=== PATIENT | female | born 1965 | race Caucasian/White ===

== ENCOUNTER 2016-12-04 15:58 | Inpatient (IN) | payer BC ==
--- NOTE | ~2016-12-04 | HP ---
History And Physical [address] [place]. [address] NAME: WHITNEY BREWER : 65 STATUS : ADM IN [facility]#: [id number] AGE: 51 ADM/REG DATE : 12/04/16 MR#: [id number] REPORT SERV DATE: 12/05/16 DICTATED BY: JACQUE LONG DATE: 12/04/16 REPORT STATUS : Draft TRANSCRIBED BY: MODL DATE: 12/04/16 DATE OF ADMISSION: 12/04/2016 CHIEF COMPLAINT: Left renal mass. HISTORY OF PRESENT ILLNESS: Ms. Brewer is a 51-year-old female, who I saw in clinic today for a new complaint of the left renal mass. She was in her usual state of health until approximately last week when she developed severe onset of nausea, vomiting, left flank pain, and hematuria. A KUB done showed enlarged left renal silhouette. A CT scan without contrast demonstrated a greater than 10 cm left renal mass calcifications as well. There was no adenopathy or vena cava involvement on a noncontrast scan. Her white count at that time was 20,000 and her creatinine was 1.1. Hemoglobin was stable. Urinalysis was positive for infection and she was placed on Bactrim. In the clinic today, she looks lethargic and generally unwell. I thought it best to perform her further workup as an inpatient and potentially perform her needed procedures as an inpatient as well. PAST MEDICAL HISTORY: Notable for hypothyroidism. PAST SURGICAL HISTORY: None. MEDICATIONS: Synthroid. ALLERGIES: NONE. FAMILY HISTORY: No family history of genitourinary malignancy. SOCIAL HISTORY: She is accompanied by her family. She is with two children. She does not drink, use drugs, or smoke. She is a current smoker. REVIEW OF SYSTEMS: A 12-point review of systems was performed. Pertinent positives are listed in the HPI. PHYSICAL EXAMINATION: VITAL SIGNS: Temperature 98.3, pulse 88, blood pressure is 105/59, saturating 92% on room air. Her BMI is 21.4. GENERAL: She is in no acute distress. She appears her stated age. HEENT: Head is normocephalic and atraumatic. LUNGS: Breathing is nonlabored. She is not in respiratory distress. Pulse is regular in rate and rhythm. ABDOMEN: Soft, nontender, and nondistended. She does have left CVA tenderness. NEURO: She is alert and oriented x3. EXTREMITIES: There is no cyanosis or edema. LABORATORY DATA: Repeat labs on admission. White count 20.7, hemoglobin 11.6, creatinine 0.92. Urinalysis is inflammatory, but not concerning for infection. History And Physical [address] [place]. [address] NAME: WHITNEY BREWER : 65 STATUS : ADM IN PAT#: [id number] AGE: 51 ADM/REG DATE : 12/04/16 MR#: [id number] REPORT SERV DATE: 12/05/16 DICTATED BY: JACQUE LONG DATE: 12/04/16 REPORT STATUS : Draft TRANSCRIBED BY: SANG DATE: 12/04/16 IMAGING: CT scan of the chest, abdomen, and pelvis is pending. ASSESSMENT AND PLAN: Ms. Brewer is a 51-year-old female with what appears to be a localized large left renal mass. She is currently not doing all that well and is being admitted for hydration as well as further workup and monitoring. We will plan on getting a CT scan of the chest, abdomen, and pelvis this evening from further staging. I will put her on IV antibiotics and IV fluids for her infection. I will leave her n.p.o. for now. Based upon her CT scan results, we can determine the next best steps. It seems very likely that she will need a left nephrectomy. The approach and timing of that depends on CT scan. JUAN ALBERTO/SANG Jacque Long MD / [id number] CC: MD ALICIA Wilkerson SAMANTHA COLEEN
--- NOTE | ~2016-12-04 | DS ---
Discharge Summary [facility] [address] [place]. [address] NAME: WHITNEY STEWART : 65 STATUS : DIS IN PAT#: [id number] AGE: 51 ADM/REG DATE : 12/04/16 MR#: [id number] REPORT SERV DATE: 12/25/16 DICTATED BY: JCAQUE LONG DATE: 12/24/16 REPORT STATUS : Draft TRANSCRIBED BY: SANG DATE: 12/24/16 Data Collection from hospitalization DISCHARGE DIAGNOSES: 1. Large 15 cm left renal mass. 2. Hypothyroidism. 3. Tobacco use. 4. Gastroesophageal reflux disease. 5. Anemia. CONSULTATIONS: None. PROCEDURES: 1. Left robot-assisted laparoscopic radical nephrectomy, periaortic lymph node dissection, 12/10/2016. 2. CT scan of the chest with contrast and CT scan of the abdomen and pelvis with and without contrast, 12/05/2016. PATHOLOGY: Kidney, left, radical nephrectomy - renal cell carcinoma, unclassified (see microscopic). DISCHARGE MEDICATIONS: Zyrtec 10 mg daily, Benadryl 25 mg at bedtime, Colace 100 mg twice a day, Advil 600 mg twice a day as needed, Synthroid 100 mcg every morning, Percocet 5/325 one to two tablets every four hours as needed. CONDITION ON DISCHARGE: Stable. DISPOSITION: The patient was discharged home on a regular diet. Activities as instructed. She would follow up with me as instructed. HOSPITAL COURSE: This is a 51-year-old female who presented to the clinic on the day of this admission with a new complaint of a left renal mass. She had been in her usual state of health until the week prior to this admission when she developed a severe onset of nausea, vomiting, left flank pain, and hematuria. A KUB revealed an enlarged left renal silhouette. CT scan without contrast demonstrated greater than 10 cm left renal mass, calcifications as well. There was no adenopathy or vena cava involvement on a noncontrast scan. Her white count at that time was 20,000, and her creatinine was 1.1. Hemoglobin was stable. Urinalysis was positive for infection. She was placed on Bactrim. In the clinic on the day of this admission, she looked lethargic and generally unwell. It was felt that it would be best to perform further workup as an inpatient and potentially perform any needed procedures as an inpatient as well. She was admitted to the hospital at this time for further evaluation and treatment. On the day following admission, the patient underwent a CT scan of the chest with contrast and CT scan of the abdomen and pelvis with and without contrast. Blood pressure was stable. Her T-max was 100. Her abdomen was soft. She did have some left flank tenderness. Blood cultures were obtained. Rocephin was continued. On 12/06/2016, she was in no acute distress. It was felt that the patient would need to undergo left radical nephrectomy. Discharge Summary [facility] [facility] [address] [facility] [place]. [address] NAME: WHITNEY STEWART : 65 STATUS : DIS IN PAT#: [id number] AGE: 51 ADM/REG DATE : 12/04/16 MR#: [id number] REPORT SERV DATE: 12/25/16 DICTATED BY: JACQUE LONG DATE: 12/24/16 REPORT STATUS : Draft TRANSCRIBED BY: SANG DATE: 12/24/16 Bowel prep was going to be performed. Protonix was started. IV fluids were discontinued. Antibiotics were continued. For the next couple of days, her only complaint was pain. On 12/10/2016, she was taken to the operating room where she underwent the above-mentioned procedure. She tolerated this well. There were no complications. On postop day 1, her abdomen was soft. Lytes were stable. Araujo catheter was removed. We encouraged her to ambulate. Her diet was advanced. Over the next couple of days, her incisions remained clean, dry, and intact. She did have a bowel movement. IV fluids were decreased. Her diet was advanced to a soft diet. She still required IV pain medications. She was encouraged to ambulate. Discharge planning continued. On 12/13/2016, she continued to do well. Discharge instructions were given. Due to her improved and stable condition, she was discharged home with the above-stated instructions. Information collected by: Savannah Tannre I submit the above information as my discharge summary. NAILA/SANG Jacque Long MD / [id number] CC: Hilaria Berrios
--- NOTE | ~2016-12-04 | OP ---
Record Of Operation [facility] [address] [place]. [address] NAME: WHITNEY BREWER : 65 STATUS : ADM IN PAT#: [id number] AGE: 51 ADM/REG DATE : 12/04/16 MR#: [id number] REPORT SERV DATE: 12/12/16 DICTATED BY: JACQUE LONG DATE: 12/11/16 REPORT STATUS : Draft TRANSCRIBED BY: MODL DATE: 12/11/16 DATE OF PROCEDURE: 12/10/2016 TITLE OF OPERATION: 1. Left robot-assisted laparoscopic radical nephrectomy. 2. Periaortic lymph node dissection. PREOPERATIVE DIAGNOSIS: Large 15 cm left renal mass. POSTOPERATIVE DIAGNOSIS: Large 15 cm left renal mass. INDICATIONS: Ms. Brewer is a 51-year-old female with a large 15 cm left renal mass. She has some enlarged periaortic nodes. She is here for resection. ANESTHESIA: General. COMPLICATIONS: None. IMPLANTS: A 16-[place] Araujo catheter. SPECIMEN: Left kidney with lymph nodes. NARRATIVE: The patient was brought to the operating room, identified by wristband. General anesthesia was induced, and Ancef was given for preoperative antibiotics. A 16-[place] Araujo catheter was placed. The balloon was inflated with 10 mL of sterile water. She was placed in modified left flank position and secured to the bed with pads and tape. She was prepped and draped in sterile fashion. I insufflated her abdomen to a pressure of 15 mmHg using a Veress needle. Standard X-Y port placement was performed. An 8 mm port was placed in a single straight line around the subclavicular line. The abdomen was inspected. There were no adhesions. There was a large tumor in the left side. A 12 mm assistant sales director port was placed in a supraumbilical position. The robot was docked. I initially began the operation by trying the end of the robot superiorly. The colon was dropped along the white line of Toldt exposing retroperitoneum. The spleen and pancreas were carefully mobilized off the tumor down to the level of the aorta. Next, the robot was re-triangulated inferiorly near the hilum. There were some inflammatory changes around the normal kidney consistent with her recent history of pyelonephritis. The colon was dropped along the white line of Toldt. The retroperitoneum is reflected medially to expose the aorta. I got beneath the gonadal vein and ureter right on the aorta and lifted the structures superiorly. These were then clipped and divided sequentially. Next, I lifted all lymphatic tissue off the aorta and lifted en bloc with the kidney specimen. A solitary renal artery was encountered, it was stapled with a 45 mm laparoscopic vascular stapler. The vein was also identified and stapled with a separate 45 mm vascular stapler. The adrenal gland was then left intact on the specimen, and care was taken to control all arterial supply to the adrenal gland with bipolar cautery. Next, the lateral attachments of the kidney were taken with cautery. The kidney was then free. There was no ongoing bleeding. The robotic ports were then removed as was the assistant sales director port. The patient was rotated back to neutral position. The skin was enlarged at Record Of Operation [address] [address] NAME: WHITNEY BREWER : 65 STATUS : ADM IN [facility] [id number] AGE: 51 ADM/REG DATE : 12/04/16 MR#: [id number] REPORT SERV DATE: 12/12/16 DICTATED BY: JACQUE LONG DATE: 12/11/16 REPORT STATUS : Draft TRANSCRIBED BY: MODL DATE: 12/11/16 the skin and fascia levels. The kidney was removed from the body and sent for the pathology for analysis. The wounds were irrigated clear. The fascia was closed with a running #1 looped PDS. The subcutaneous tissues were closed with a 3-0 Vicryl suture. The skin was closed with 4-0 Monocryl suture. Dermabond dressing was placed. There were no complications. The patient was awoken from anesthesia and transferred to the recovery room in stable condition. JUAN ALBERTO/SANG Jacque Long MD / [id number] CC: MD Hilaria Wilkerson
[2016-12-04 17:31] LABS: BASOPHILS 0 %; BASOPHILS ABSOLUTE 0.01 10/3/uL (0.0-0.16); EOSINOPHILS 0 %; HEMATOCRIT 33.6 % (36.0-48.0); HEMOGLOBIN 11.6 g/dL (12.0-16.0); IMMATURE GRANULOCYTES 0.4 %; IMMATURE GRANULOCYTES ABSOLUTE 0.08 10/3/uL (0.0-0.11); LYMPHOCYTES 3.8 %; LYMPHOCYTES ABSOLUTE 0.78 10/3/uL (0.67-4.30); MEAN CORPUS HGB CONC 34.5 g/dL (32.0-36.0); MEAN CORPUSCULAR HEMOGLOB 29.6 pg (26.0-34.0); MEAN CORPUSCULAR VOLUME 85.7 fL (80-100); MEAN PLATELET VOLUME 9.7 fL (9.2-13.0); MONOCYTES 6.6 %; MONOCYTES ABSOLUTE 1.36 10/3/uL (0.21-1.20); NEUTROPHILS 89.2 %; NEUTROPHILS ABSOLUTE 18.45 10/3/uL (2.02-8.40); PLATELET COUNT 178 10/3/uL (150-400); RBC DISTRIBUTION WIDTH 13.6 % (12.0-16.0); RED CELL COUNT 3.92 10/6/uL (4.0-5.6); WHITE BLOOD CELLS 20.7 10/3/uL (4.5-10.5)
[2016-12-04 17:34] LABS: MANUAL DIFF NO %
[2016-12-04 17:47] LABS: ASCORBIC ACID (UR NOT ORDER) NEG (NEG); BILIRUBIN, URINE NEGATIVE (NEG); KETONE, URINE 20 MG/DL (NEG); LEUKOCYTE ESTERASE(NOT OR SMALL (NEG); WBC (NOT ORDERED) (RFLEX) 129 (0-5)
[2016-12-04 18:05] LABS: BUN (BLOOD UREA NITROGEN) 16 MG/DL (6-23); CALCIUM, SERUM 8.9 MG/DL (8.5-10.4); CHLORIDE, SERUM 108 MMOL/L (96-112); CO2 (CARBON DIOXIDE) 20 MMOL/L (24-34); CREATININE 0.92 MG/DL (0.55-1.02); GFR AFRICAN AMERICAN 84 ML/MIN (>=60); GFR NON AFRICAN AMERICAN 72 ML/MIN (>=60); GLUCOSE, SERUM 115 MG/DL (60-99); POTASSIUM, SERUM 3.5 MMOL/L (3.5-5.3); SODIUM, SERUM 139 MMOL/L (135-148)
[2016-12-04] MEDS ORDERED: SYN1 PO (22:49)
[2016-12-04] MEDS ORDERED: BEN25 PO (22:49)
[2016-12-04] MEDS ORDERED: ZYRTEC ALLGY10 MG PO (22:50)
[2016-12-04] MEDS ORDERED: ADVIL PO (22:50)
[2016-12-05 10:32] LABS: BASOPHILS 0.1 %; BASOPHILS ABSOLUTE 0.02 10/3/uL (0.0-0.16); EOSINOPHILS 0.2 %; EOSINOPHILS ABSOLUTE 0.04 10/3/uL (0.0-0.53); HEMATOCRIT 32.5 % (36.0-48.0); HEMOGLOBIN 11.3 g/dL (12.0-16.0); IMMATURE GRANULOCYTES 0.4 %; IMMATURE GRANULOCYTES ABSOLUTE 0.06 10/3/uL (0.0-0.11); LYMPHOCYTES 5.3 %; LYMPHOCYTES ABSOLUTE 0.85 10/3/uL (0.67-4.30); MEAN CORPUS HGB CONC 34.8 g/dL (32.0-36.0); MEAN CORPUSCULAR VOLUME 86.2 fL (80-100); MEAN PLATELET VOLUME 9.4 fL (9.2-13.0); MONOCYTES ABSOLUTE 1.12 10/3/uL (0.21-1.20); NEUTROPHILS ABSOLUTE 13.97 10/3/uL (2.02-8.40); PLATELET COUNT 169 10/3/uL (150-400); RBC DISTRIBUTION WIDTH 13.6 % (12.0-16.0); RED CELL COUNT 3.77 10/6/uL (4.0-5.6); WHITE BLOOD CELLS 16.1 10/3/uL (4.5-10.5)
[2016-12-05 10:38] LABS: MANUAL DIFF NO %
[2016-12-05 10:40] LABS: BUN (BLOOD UREA NITROGEN) 12 MG/DL (6-23); CHLORIDE, SERUM 106 MMOL/L (96-112); CO2 (CARBON DIOXIDE) 23 MMOL/L (24-34); CREATININE 0.91 MG/DL (0.55-1.02); GFR AFRICAN AMERICAN 85 ML/MIN (>=60); GFR NON AFRICAN AMERICAN 73 ML/MIN (>=60); GLUCOSE, SERUM 113 MG/DL (60-99); POTASSIUM, SERUM 3.7 MMOL/L (3.5-5.3); SODIUM, SERUM 137 MMOL/L (135-148)
[2016-12-06 04:04] LABS: BASOPHILS 0.1 %; BASOPHILS ABSOLUTE 0.02 10/3/uL (0.0-0.16); EOSINOPHILS 0.5 %; EOSINOPHILS ABSOLUTE 0.07 10/3/uL (0.0-0.53); HEMOGLOBIN 9.8 g/dL (12.0-16.0); IMMATURE GRANULOCYTES 0.3 %; IMMATURE GRANULOCYTES ABSOLUTE 0.04 10/3/uL (0.0-0.11); LYMPHOCYTES 8.5 %; LYMPHOCYTES ABSOLUTE 1.17 10/3/uL (0.67-4.30); MEAN CORPUS HGB CONC 34.5 g/dL (32.0-36.0); MEAN CORPUSCULAR HEMOGLOB 29.8 pg (26.0-34.0); MEAN CORPUSCULAR VOLUME 86.3 fL (80-100); MEAN PLATELET VOLUME 9.4 fL (9.2-13.0); MONOCYTES ABSOLUTE 1.38 10/3/uL (0.21-1.20); NEUTROPHILS 80.6 %; NEUTROPHILS ABSOLUTE 11.14 10/3/uL (2.02-8.40); PLATELET COUNT 188 10/3/uL (150-400); RBC DISTRIBUTION WIDTH 13.5 % (12.0-16.0); RED CELL COUNT 3.29 10/6/uL (4.0-5.6); WHITE BLOOD CELLS 13.8 10/3/uL (4.5-10.5)
[2016-12-06 04:06] LABS: HEMATOCRIT 28.4 % (36.0-48.0); MANUAL DIFF NO %
[2016-12-06 04:23] LABS: CALCIUM, SERUM 7.8 MG/DL (8.5-10.4); CHLORIDE, SERUM 106 MMOL/L (96-112); CO2 (CARBON DIOXIDE) 23 MMOL/L (24-34); CREATININE 0.85 MG/DL (0.55-1.02); GFR AFRICAN AMERICAN 92 ML/MIN (>=60); GFR NON AFRICAN AMERICAN 79 ML/MIN (>=60); SODIUM, SERUM 137 MMOL/L (135-148)
[2016-12-06 04:26] LABS: BUN (BLOOD UREA NITROGEN) 6 MG/DL (6-23); GLUCOSE, SERUM 262 MG/DL (60-99); POTASSIUM, SERUM 4.7 MMOL/L (3.5-5.3)
[2016-12-07 07:15] LABS: BASOPHILS 0.5 %; BASOPHILS ABSOLUTE 0.06 10/3/uL (0.0-0.16); EOSINOPHILS ABSOLUTE 0.11 10/3/uL (0.0-0.53); HEMATOCRIT 30.3 % (36.0-48.0); HEMOGLOBIN 10.4 g/dL (12.0-16.0); IMMATURE GRANULOCYTES 0.5 %; IMMATURE GRANULOCYTES ABSOLUTE 0.06 10/3/uL (0.0-0.11); LYMPHOCYTES 12.3 %; LYMPHOCYTES ABSOLUTE 1.42 10/3/uL (0.67-4.30); MEAN CORPUS HGB CONC 34.3 g/dL (32.0-36.0); MEAN CORPUSCULAR HEMOGLOB 29.3 pg (26.0-34.0); MEAN CORPUSCULAR VOLUME 85.4 fL (80-100); MONOCYTES 11.9 %; MONOCYTES ABSOLUTE 1.37 10/3/uL (0.21-1.20); NEUTROPHILS 73.8 %; NEUTROPHILS ABSOLUTE 8.51 10/3/uL (2.02-8.40); PLATELET COUNT 211 10/3/uL (150-400); RBC DISTRIBUTION WIDTH 13.4 % (12.0-16.0); RED CELL COUNT 3.55 10/6/uL (4.0-5.6); WHITE BLOOD CELLS 11.5 10/3/uL (4.5-10.5)
[2016-12-07 07:16] LABS: MANUAL DIFF NO %
[2016-12-09 06:19] LABS: HEMATOCRIT 29.9 % (36.0-48.0); HEMOGLOBIN 10.3 g/dL (12.0-16.0); MANUAL DIFF YES %; MEAN CORPUS HGB CONC 34.4 g/dL (32.0-36.0); MEAN CORPUSCULAR HEMOGLOB 28.9 pg (26.0-34.0); MEAN PLATELET VOLUME 8.3 fL (9.2-13.0); PLATELET COUNT 326 10/3/uL (150-400); RBC DISTRIBUTION WIDTH 13.3 % (12.0-16.0); RED CELL COUNT 3.56 10/6/uL (4.0-5.6); WHITE BLOOD CELLS 10.5 10/3/uL (4.5-10.5)
[2016-12-09 06:22] LABS: INTERNATIONAL NORMAL RATI 1.1 UNITS (-); PARTIAL THROMBO TIME 32.9 SEC (22.5-37.2); PROTIME (NOT ORD) 14.3 SEC (12.0-14.5)
[2016-12-09 06:27] LABS: BUN (BLOOD UREA NITROGEN) 7 MG/DL (6-23); CALCIUM, SERUM 8.4 MG/DL (8.5-10.4); CHLORIDE, SERUM 105 MMOL/L (96-112); CO2 (CARBON DIOXIDE) 26 MMOL/L (24-34); CREATININE 0.63 MG/DL (0.55-1.02); GFR AFRICAN AMERICAN 120 ML/MIN (>=60); GFR NON AFRICAN AMERICAN 104 ML/MIN (>=60); SODIUM, SERUM 138 MMOL/L (135-148)
[2016-12-09 06:28] LABS: GLUCOSE, SERUM 108 MG/DL (60-99); POTASSIUM, SERUM 3.5 MMOL/L (3.5-5.3)
[2016-12-09 06:45] LABS: BAND NEUTROPHILS 1 %; LYMPHOCYTES 11 %; LYMPHOCYTES ABSOLUTE (CALC) 1.16 10/3/uL (0.67-4.30); MONOCYTES 6 %; MONOCYTES ABSOLUTE (CALC) 0.63 10/3/uL (0.21-1.20); NEUTROPHILS ABSOLUTE (CALC) 8.72 10/3/uL (2.02-8.40); SEGMENTED NEUTROPHIL (0) 82 %; TOTAL NUCLEATED CELLS 100
[2016-12-09 06:46] LABS: PLATELET ESTIMATE ADQ (ADEQUATE); RBC MORPHOLOGY NORM (NORMAL)
[2016-12-10 04:45] LABS: HEMATOCRIT 29.9 % (36.0-48.0); HEMOGLOBIN 10.4 g/dL (12.0-16.0)
[2016-12-10 16:42] LABS: BASOPHILS 0.2 %; BASOPHILS ABSOLUTE 0.02 10/3/uL (0.0-0.16); EOSINOPHILS 0.1 %; EOSINOPHILS ABSOLUTE 0.01 10/3/uL (0.0-0.53); HEMATOCRIT 31.6 % (36.0-48.0); HEMOGLOBIN 10.9 g/dL (12.0-16.0); IMMATURE GRANULOCYTES 1.1 %; IMMATURE GRANULOCYTES ABSOLUTE 0.15 10/3/uL (0.0-0.11); LYMPHOCYTES 4.5 %; MEAN CORPUS HGB CONC 34.5 g/dL (32.0-36.0); MEAN CORPUSCULAR HEMOGLOB 29.4 pg (26.0-34.0); MEAN CORPUSCULAR VOLUME 85.2 fL (80-100); MEAN PLATELET VOLUME 8.1 fL (9.2-13.0); MONOCYTES ABSOLUTE 0.27 10/3/uL (0.21-1.20); NEUTROPHILS 92.1 %; NEUTROPHILS ABSOLUTE 12.14 10/3/uL (2.02-8.40); PLATELET COUNT 366 10/3/uL (150-400); RBC DISTRIBUTION WIDTH 13.3 % (12.0-16.0); RED CELL COUNT 3.71 10/6/uL (4.0-5.6); WHITE BLOOD CELLS 13.2 10/3/uL (4.5-10.5)
[2016-12-10 16:43] LABS: MANUAL DIFF NO %
[2016-12-10 16:54] LABS: BUN (BLOOD UREA NITROGEN) 7 MG/DL (6-23); CALCIUM, SERUM 8.2 MG/DL (8.5-10.4); CHLORIDE, SERUM 108 MMOL/L (96-112); CO2 (CARBON DIOXIDE) 26 MMOL/L (24-34); CREATININE 0.87 MG/DL (0.55-1.02); GFR AFRICAN AMERICAN 89 ML/MIN (>=60); GFR NON AFRICAN AMERICAN 77 ML/MIN (>=60); GLUCOSE, SERUM 193 MG/DL (60-99); SODIUM, SERUM 143 MMOL/L (135-148)
[2016-12-12 06:14] LABS: BASOPHILS 0.4 %; BASOPHILS ABSOLUTE 0.03 10/3/uL (0.0-0.16); EOSINOPHILS 1.7 %; EOSINOPHILS ABSOLUTE 0.14 10/3/uL (0.0-0.53); HEMOGLOBIN 11.1 g/dL (12.0-16.0); IMMATURE GRANULOCYTES 1.4 %; IMMATURE GRANULOCYTES ABSOLUTE 0.11 10/3/uL (0.0-0.11); LYMPHOCYTES 26.6 %; LYMPHOCYTES ABSOLUTE 2.14 10/3/uL (0.67-4.30); MANUAL DIFF NO %; MEAN CORPUS HGB CONC 33.6 g/dL (32.0-36.0); MEAN CORPUSCULAR HEMOGLOB 29.7 pg (26.0-34.0); MEAN CORPUSCULAR VOLUME 88.2 fL (80-100); MONOCYTES 7.1 %; MONOCYTES ABSOLUTE 0.57 10/3/uL (0.21-1.20); NEUTROPHILS 62.8 %; NEUTROPHILS ABSOLUTE 5.06 10/3/uL (2.02-8.40); PLATELET COUNT 423 10/3/uL (150-400); RBC DISTRIBUTION WIDTH 13.2 % (12.0-16.0); RED CELL COUNT 3.74 10/6/uL (4.0-5.6); WHITE BLOOD CELLS 8.1 10/3/uL (4.5-10.5)
[2016-12-13 05:16] LABS: BASOPHILS 0.4 %; BASOPHILS ABSOLUTE 0.03 10/3/uL (0.0-0.16); EOSINOPHILS 2.6 %; EOSINOPHILS ABSOLUTE 0.18 10/3/uL (0.0-0.53); HEMATOCRIT 34.1 % (36.0-48.0); HEMOGLOBIN 11.2 g/dL (12.0-16.0); IMMATURE GRANULOCYTES ABSOLUTE 0.14 10/3/uL (0.0-0.11); LYMPHOCYTES 24.1 %; LYMPHOCYTES ABSOLUTE 1.66 10/3/uL (0.67-4.30); MANUAL DIFF NO %; MEAN CORPUS HGB CONC 32.8 g/dL (32.0-36.0); MEAN CORPUSCULAR HEMOGLOB 28.7 pg (26.0-34.0); MEAN CORPUSCULAR VOLUME 87.4 fL (80-100); MONOCYTES 4.5 %; MONOCYTES ABSOLUTE 0.31 10/3/uL (0.21-1.20); NEUTROPHILS 66.4 %; NEUTROPHILS ABSOLUTE 4.57 10/3/uL (2.02-8.40); PLATELET COUNT 428 10/3/uL (150-400); RBC DISTRIBUTION WIDTH 13.4 % (12.0-16.0); WHITE BLOOD CELLS 6.9 10/3/uL (4.5-10.5)
[2016-12-13 05:29] LABS: BUN (BLOOD UREA NITROGEN) 7 MG/DL (6-23); CALCIUM, SERUM 8.9 MG/DL (8.5-10.4); CHLORIDE, SERUM 105 MMOL/L (96-112); CO2 (CARBON DIOXIDE) 29 MMOL/L (24-34); CREATININE 1.02 MG/DL (0.55-1.02); GFR AFRICAN AMERICAN 74 ML/MIN (>=60); GFR NON AFRICAN AMERICAN 64 ML/MIN (>=60); POTASSIUM, SERUM 4.3 MMOL/L (3.5-5.3); SODIUM, SERUM 142 MMOL/L (135-148)
[2016-12-13 05:30] LABS: GLUCOSE, SERUM 114 MG/DL (60-99)
[2016-12-13] MEDS ORDERED: PCET PO (08:09)
[2016-12-13] MEDS ORDERED: DSS PO (08:09)
== END 2016-12-13 13:20 | disposition home or self-care (01) | DRG 657 ==
LOC: 4EA 15:58
PROVIDERS: Urology
PROC: 07BD4ZZ Excision of Aortic Lymphatic, Percutaneous Endoscopic Approach (ICD-10-PCS; 2016-12-10)
PROC: 8E0W4CZ Robotic Assisted Procedure of Trunk Region, Percutaneous Endoscopic Approach (ICD-10-PCS; 2016-12-10)
PROC: 0TT14ZZ Resection of Left Kidney, Percutaneous Endoscopic Approach (ICD-10-PCS; principal; 2016-12-10 11:15)
DX: C64.2 Malignant neoplasm of left kidney, except renal pelvis (principal); N39.0 Urinary tract infection, site not specified; N28.89 Other specified disorders of kidney and ureter; E86.0 Dehydration; F17.210 Nicotine dependence, cigarettes, uncomplicated; K21.9 Gastro-esophageal reflux disease without esophagitis; E05.90 Thyrotoxicosis, unspecified without thyrotoxic crisis or storm
CPT/HCPCS: 36415; 71260; 74178; 80048; 81001; 85014; 85018; 85025; 85610; 85730; 86850; 86900; 86901; 86920; 87040; 87086; 88307; 88313; 88341; 88342; 88360; 93005; A9270-GY; J0690; J1170; J1885; J2250; J2270; J2405; J2710; J2795; J3010; P9045; Q9967